=== PATIENT | female | born 1950 | race Caucasian/White ===

== ENCOUNTER 2017-07-12 11:40 | Emergency (ER) | payer MEDICARE, BC ==
[2017-07-12] MEDS ORDERED: Ondansetron ODT 4 MG TAB ONE (11:53)
[2017-07-12 12:00] LABS: Bilirubin Negative (Negative); Blood, Urine Moderate (Negative); Clarity Turbid (Clear); Glucose, Urine (Dipstick) Negative (Negative); Leukocyte Moderate (Negative); Nitrite Positive (Negative); Protein, Urine (Dipstick) 100 mg/dL (Neg-Trace); Specific Gravity, Urine 1.015 (1.005-1.030); pH, Urine 6.5 (5.0-9.0)
[2017-07-12 12:07] LABS: Bacteria/HPF 3+ HPF (None Seen); Squamous Epithelial 0-3 HPF (0-3)
--- NOTE | 2017-07-12 18:36 | RAD ---
CHEST TWO VIEWS: 07/12/2017 No prior films are available for comparison. The heart is borderline in size, but there are no congestive changes or pleural effusions. No lobar consolidations were seen. Minimal haziness over the lower lungs is probably due to the overlying sof t tissues. There probably is a little bit of lingular scarring. The trachea is midline, and the med iastinum appeared normal. IMPRESSION: Borderline heart size but no acute finding. POS: HOME
== END 2017-07-12 12:51 | disposition home or self-care (01) ==
LOC: BURERS 11:40
DX: J20.9 Acute bronchitis, unspecified (principal); N39.0 Urinary tract infection, site not specified; E03.9 Hypothyroidism, unspecified; I10 Essential (primary) hypertension; Z79.899 Other long term (current) drug therapy
CPT/HCPCS: 71020; 81003; 81015; 87077; 87086; 87186; Q0162